=== PATIENT | male | born 1965 | race Caucasian/White ===

== ENCOUNTER 2023-09-02 12:12 | Inpatient (IN) ==
--- NOTE | 2023-09-02 12:40 | Emergency Department Note ---
History of Present Illness General Chief complaint: Cardiac Assessment Stated complaint: NEW ONSET A FIB Time Seen by Provider: 09/02/23 12:30 History of Present Illness Provider complaint: New onset atrial fibrillation 58-year-old male presents emergency department from skilled nursing for new onset atrial fibrillation. Patient went for routine health checkup and was found to be in atrial fibrillation. He reports some difficulty breathing but no chest pain. No recent travel no exogenous hormone usage no hemoptysis. Home Medications Medication Instructions Recorded Confirmed Type No Known Home Medications 09/02/23 09/02/23 History Allergies Allergy/AdvReac Type Severity Reaction Status Date / Time No Known Allergies Allergy Verified 09/02/23 15:56 Past Med/Surg History Medical History No pertinent family history HLD (hyperlipidemia) Surgical History No pertinent past surgical history Family History (Updated 09/02/23 @ 16:44 by Josefa Alberto PA-C) Father Heart disease Hypertension Sister Diabetes Social History Smoking Status: Former smoker Feels Safe at Home: Yes Physical Exam Vital Signs Vital Signs - 24 hr 09/02/23 12:23 09/02/23 12:39 09/02/23 12:40 Temperature 36.3 C L Temperature Source Temporal Artery Scan Pulse Rate 62 118 H 136 H Pulse Rate [Apical] Pulse Rate from SpO2 Sensor 79 68 Respiratory Rate 16 22 19 Respiratory Effort / Characteristics Non-Labored Respiratory Depth Normal Blood Pressure 134/104 H Blood Pressure [Right Arm] Blood Pressure Mean 114 Blood Pressure Mean [Right Arm] Pulse Oximetry 97 98 99 Oxygen Delivery Method Room Air Sepsis Recent Fever Within 48 Hours No Sepsis New/Unexplained Change in Mental Status No Sepsis Action Taken by Nursing No Action Required 09/02/23 12:41 09/02/23 12:44 09/02/23 12:44 Temperature Temperature Source Pulse Rate 106 H 118 H Pulse Rate [Apical] Pulse Rate from SpO2 Sensor 61 Respiratory Rate 14 Respiratory Effort / Characteristics Respiratory Depth Blood Pressure 135/98 Blood Pressure [Right Arm] Blood Pressure Mean 110 Blood Pressure Mean [Right Arm] Pulse Oximetry 99 99 Oxygen Delivery Method Room Air Sepsis Recent Fever Within 48 Hours Sepsis New/Unexplained Change in Mental Status Sepsis Action Taken by Nursing 09/02/23 12:54 09/02/23 15:55 09/02/23 16:28 Temperature Temperature Source Pulse Rate 125 H 89 Pulse Rate [Apical] 96 H Pulse Rate from SpO2 Sensor 82 Respiratory Rate 18 20 Respiratory Effort / Characteristics Non-Labored Respiratory Depth Normal Blood Pressure 123/103 H Blood Pressure [Right Arm] 135/89 Blood Pressure Mean 109 Blood Pressure Mean [Right Arm] 104 Pulse Oximetry 98 96 Oxygen Delivery Method Room Air Sepsis Recent Fever Within 48 Hours Sepsis New/Unexplained Change in Mental Status Sepsis Action Taken by Nursing Physical Exam GENERAL: oriented to person, place, and time. appears well-developed and well- nourished. HENT: Exam performed. - Head: Normocephalic and atraumatic. EYES: Conjunctivae and EOM are normal. Right eye exhibits no discharge. Left eye exhibits no discharge. No scleral icterus. NECK: Normal range of motion. Neck supple. No JVD present. CV: Normal rate, regular rhythm, normal heart sounds and intact distal pulses. There is no peripheral edema. Palpable radial pulses bue. PULM/CHEST: Effort normal and breath sounds normal. No respiratory distress. No stridor. no wheezes. no rales. ABD: The abdomen is soft. There is no tenderness. NEURO: Motor and sensation grossly intact. SKIN: Skin is warm and dry. He is not diaphoretic. PSYCH: normal mood and affect. Behavior is normal. Judgment and thought content normal. Course Course 1230: The patient was evaluated in room A9. A complete history and physical exam was performed Cardiac monitoring: An order was placed for continuous cardiac monitoring. The monitor shows a rate of atrial fibrilation with 100-120 rhythm interpreted by me 1400: Patient's ventricular rate now ranging between 120-150. Labs within normal limits. Cardizem IV ordered for the patient. Cardizem IV did improve patient's ventricular rate. Will continue to monitor the patient. Will send the patient for CTA rule out PE. 1530: Patient's ventricular rate was controlled after bolus of IV Cardizem however now the patient's ventricular rate is consistently 130s again. Patient be started on Cardizem drip. Patient will be admitted to the hospitalist team. Discussed case with cardiology on-call Dr. Kahn who is in agreement. Patient's [id number] score is a 0 aspirin given to the patient. Administered Medications Diltiazem HCl 125 mg/ Dextrose 125 mls @ 5 mls/hr IV .Q24H DANE; Protocol Stop: 10/02/23 15:29 Last Admin: 09/02/23 15:41 Dose: 5 mg/hr, 5 mls/hr Documented By: CPB Co-signed By: SADE Discontinued Medications Aspirin (Aspirin 81 Mg Chew) 324 mg PO NOW STA Stop: 09/02/23 15:24 Last Admin: 09/02/23 15:27 Dose: 324 mg Documented By: CPB Diltiazem HCl (Diltiazem Hcl 5 Mg/Ml 5 Ml Vial) 15 mg IV NOW STA Stop: 09/02/23 13:59 Last Admin: 09/02/23 14:01 Dose: 15 mg Documented By: CPB Co-signed By: LEANNE Ioversol (Optiray 320 125ml) 112 ml IV ONCE ONE Stop: 09/02/23 14:16 Last Admin: 09/02/23 14:15 Dose: 112 ml Documented By: LINDA Miscellaneous (Stat Iv Infusion Titration Per Protocol) 1 each N/A NOW STA Stop: 09/02/23 15:23 Last Admin: 09/02/23 15:42 Dose: 1 each Documented By: CPB Critical Care Time Critical Care Time: Yes Total Critical Care Time: 60 I have personally spent greater than 60 minutes of critical care time in the direct management of this patient. This includes bedside care, interpretation of diagnostic studies, and testing, discussion with consultants, patient, and family members, and other required patient management activities. This 60 minutes is in excess of all separately billable procedures. Medical Decision Making Laboratory Data Attestation: I reviewed the patient's lab results. 09/02/23 12:50 09/02/23 12:50 Lab Results 09/02/23 Range/Units 12:50 WBC 5.74 (4.8-10.8) K/ul RBC 4.85 (4.70-6.10) M/uL Hgb 14.6 (14.0-18.0) g/dl Hct 43.0 (42.0-52.0) % MCV 88.7 (80.0-100.0) fL MCH 30.1 (25.0-34.0) pg MCHC 34.0 (32.0-36.0) g/dL RDW Std Deviation 41.1 (36.4-46.3) fL RDW Coeff of Najma 12.6 (11.5-14.5) % Plt Count 188 (130-400) K/uL MPV 10.8 (9.4-12.4) fL Immature Gran % (Auto) 0.3 % Neut % (Auto) 55.6 % Lymph % (Auto) 34.7 % Spencer % (Auto) 7.3 % Eos % (Auto) 1.4 % Baso % (Auto) 0.7 % Neut # (Auto) 3.19 (1.40-6.50) K/uL Lymph # (Auto) 1.99 (1.20-3.40) K/uL Spencer # (Auto) 0.42 (0.11-0.59) K/uL Eos # (Auto) 0.08 (0.00-0.50) K/uL Baso # (Auto) 0.04 (0.00-0.20) K/uL Immature Gran # (Auto) 0.02 (0.01-0.20) K/uL Sodium 141 (136-145) mmol/L Potassium 4.3 (3.5-5.1) mmol/L Chloride 107 (98-107) mmol/L Carbon Dioxide 30 (21-32) mmol/L Anion Gap 4 (3-11) BUN 14 (6-23) mg/dl Creatinine 0.86 (0.6-1.4) mg/dl Est Cr Clr Drug Dosing 100.3 ml/min Est GFR ( Amer) 109.2 ml/min Est GFR (Non-Af Amer) 94.3 ml/min BUN/Creatinine Ratio 16.3 (10-20) Glucose 100 H (70-99(Fasting)) mg/dl Calcium 9.1 (8.6-10.3) mg/dl Magnesium 2.2 (1.7-2.4) mg/dl Troponin I High Sens 3.9 (0-20) pg/ml Lipase 32 (11-82) U/L Imaging Data Attestation: I personally reviewed and interpreted this imaging study as follows: My Impression: Chest x-ray negative. Airway clear. No pneumothorax. No consolidation. No cardiomegaly or cephalization.. No free air under the diaphragm. No fractures of the skeletal structures. Radiologist's Impression: Chest X-Ray 09/02/23 12:37 XR chest 1V portable HISTORY: 58 years-old Male Chest pain, nonspecific COMPARISON: None TECHNIQUE: AP view of the chest FINDINGS: Cardiomediastinal and hilar silhouettes are within normal limits. No pneumothorax, pleural effusion or airspace consolidation. IMPRESSION: No acute process. ACT 112: Negative or not required by law. The above report was generated using voice recognition software. It may contain grammatical, syntax or spelling errors. Electronically signed by: Ashish Moreno M.D. 09/02/2023 1:05 PM Chest CTA 09/02/23 14:02 CHEST CTA for PULMONARY ARTERIES CT DOSE: 704.98 mGy.cm HISTORY: Dysrhythmia. Assess for pulmonary embolus. TECHNIQUE: Multiaxial CT images of the chest were performed following the intravenous administration of contrast to evaluate the pulmonary arteries. 3D/Maximal intensity projection images were also obtained. Sagittal and coronal reformations were also reviewed. A dose lowering technique was utilized adhering to the principles of ALARA. COMPARISON STUDY: None. FINDINGS: There are old, healed left anterior rib fractures. No acute fractures within the chest. No pneumothorax. No pleural effusions. No focal lung consolidations to suggest pneumonia. No evidence for pulmonary edema. There are few punctate calcified granuloma seen within the lungs. Focus of mucoid material within the left mainstem bronchus. There is mild central bronchial wall thickening. Normal thyroid gland. Limited views of the upper abdomen demonstrate a normal liver, spleen, and adrenal glands. Normal esophagus. No mediastinal or hilar lymphadenopathy. The heart is normal in size. No pericardial effusion. Moderate calcified plaque within the left coronary artery. There is an ectatic ascending thoracic aorta measuring up to 3.9 cm in diameter. No evidence for an aortic dissection. No filling defects within the pulmonary arteries to suggest a pulmonary embolus. IMPRESSION: 1. No evidence for a pulmonary embolus. 2. Mild central bronchial wall thickening. This may represent a mild bronchitis. 3. No focal lung consolidations to suggest pneumonia. 4. Small amount of mucoid material within the left mainstem bronchus. ACT 112: Negative or not required by law. Electronically signed by: Mickey Johnson M.D. 09/02/2023 2:45 PM ECG Data Attestation: I personally reviewed and interpreted this ECG as follows: Additional Comments: EKG #1 at 1240: Atrial fibrillation with a rate of 136. QRS and QTc are within normal limits. No ST elevation or ST depression EKG #2 at 1406 status post Cardizem IV bolus: Atrial fibrillation with a rate of 106. QRS and QTc intervals within normal limits. No ST elevation or ST depression. MDM Narrative 1230: The patient was evaluated in room A9. A complete history and physical exam was performed Cardiac monitoring: An order was placed for continuous cardiac monitoring. The monitor shows a rate of atrial fibrilation with 100-120 rhythm interpreted by me 1400: Patient's ventricular rate now ranging between 120-150. Labs within normal limits. Cardizem IV ordered for the patient. Cardizem IV did improve patient's ventricular rate. Will continue to monitor the patient. Will send the patient for CTA rule out PE. 1530: Patient's ventricular rate was controlled after bolus of IV Cardizem however now the patient's ventricular rate is consistently 130s again. Patient be started on Cardizem drip. Patient will be admitted to the hospitalist team. Discussed case with cardiology on-call Dr. Kahn who is in agreement. Patient's [id number] score is a 0 aspirin given to the patient. Impression & Plan Atrial fibrillation with RVR Discharge Plan Visit Data Chief Complaint: Cardiac Assessment Stated Complaint: NEW ONSET A FIB ED Provider: Blaze Grey Discharge Problem: Atrial fibrillation with RVR Patient Disposition: Admitted As Inpatient Forms Stand Alone Forms: [employer] Prescriptions Prescriptions: No Action No Known Home Medications Referrals Referrals: PCP,NO [Physician] -
--- NOTE | 2023-09-02 13:07 | XRay Report ---
XR chest 1V portable HISTORY: 58 years-old Male Chest pain, nonspecific COMPARISON: None TECHNIQUE: AP view of the chest FINDINGS: Cardiomediastinal and hilar silhouettes are within normal limits. No pneumothorax, pleural effusion o r airspace consolidation. IMPRESSION: No acute process. ACT 112: Negative or not required by law. The above report was generated using voice recognition software. It may contain grammatical, syntax o r spelling errors. Electronically signed by: Ashish Moreno M.D. 09/02/2023 1:05 PM
[2023-09-02 13:24] LABS: Basophils # (auto) 0.04 K/uL (0.00-0.20); Basophils % (auto) 0.7 %; Eosinophils # (auto) 0.08 K/uL (0.00-0.50); Eosinophils % (auto) 1.4 %; Hemoglobin 14.6 g/dl (14.0-18.0); Immature Granulocytes # (auto) 0.02 K/uL (0.01-0.20); Immature Granulocytes % (auto) 0.3 %; Lymphocytes # (auto) 1.99 K/uL (1.20-3.40); Lymphocytes % (auto) 34.7 %; Mean Corpuscular Hemoglobin 30.1 pg (25.0-34.0); Mean Corpuscular Volume 88.7 fL (80.0-100.0); Mean Platelet Volume 10.8 fL (9.4-12.4); Monocytes # (auto) 0.42 K/uL (0.11-0.59); Monocytes % (auto) 7.3 %; Neutrophils # (auto) 3.19 K/uL (1.40-6.50); Neutrophils % (auto) 55.6 %; Platelet Count 188 K/uL (130-400); RDW Coefficient of Variation 12.6 % (11.5-14.5); RDW Standard Deviation 41.1 fL (36.4-46.3); Red Blood Count 4.85 M/uL (4.70-6.10); White Blood Count 5.74 K/ul (4.8-10.8)
[2023-09-02 13:40] LABS: BUN Creatinine Ratio 16.3 (10-20); Calcium 9.1 mg/dl (8.6-10.3); Creatinine Clr Calc Pharmacy 100.3 ml/min; Est GFR (African American) 109.2 ml/min; Est GFR (Non-African American) 94.3 ml/min; Magnesium 2.2 mg/dl (1.7-2.4); Potassium 4.3 mmol/L (3.5-5.1)
[2023-09-02 13:47] LABS: Troponin I High Sensitivity 3.9 pg/ml (0-20)
[2023-09-02] MEDS ORDERED: dilTIAZem HCl 5 MG/ML 5 ML VIAL IV STA (13:58)
[2023-09-02] MEDS ORDERED: OPTIRAY 320 125ml IV ONE (14:15)
--- NOTE | 2023-09-02 14:46 | CT Scan Report ---
CHEST CTA for PULMONARY ARTERIES CT DOSE: 704.98 mGy.cm HISTORY: Dysrhythmia. Assess for pulmonary embolus. TECHNIQUE: Multiaxial CT images of the chest were performed following the intravenous administration of contrast to evaluate the pulmonary arteries. 3D/Maximal intensity projection images were also obta ined. Sagittal and coronal reformations were also reviewed. A dose lowering technique was utilized a dhering to the principles of ALARA. COMPARISON STUDY: None. FINDINGS: There are old, healed left anterior rib fractures. No acute fractures within the chest. No pneumothorax. No pleural effusions. No focal lung consolidations to suggest pneumonia. No evidence fo r pulmonary edema. There are few punctate calcified granuloma seen within the lungs. Focus of mucoid material within the left mainstem bronchus. There is mild central bronchial wall thickening. Normal t hyroid gland. Limited views of the upper abdomen demonstrate a normal liver, spleen, and adrenal glan ds. Normal esophagus. No mediastinal or hilar lymphadenopathy. The heart is normal in size. No perica rdial effusion. Moderate calcified plaque within the left coronary artery. There is an ectatic ascend ing thoracic aorta measuring up to 3.9 cm in diameter. No evidence for an aortic dissection. No filli ng defects within the pulmonary arteries to suggest a pulmonary embolus. IMPRESSION: 1. No evidence for a pulmonary embolus. 2. Mild central bronchial wall thickening. This may represent a mild bronchitis. 3. No focal lung consolidations to suggest pneumonia. 4. Small amount of mucoid material within the left mainstem bronchus. ACT 112: Negative or not required by law. Electronically signed by: Mickey Johnson M.D. 09/02/2023 2:45 PM
[2023-09-02] MEDS ORDERED: STAT IV Infusion **Titration per Protocol STA (15:22)
[2023-09-02] MEDS ORDERED: ASPIRIN 81 MG CHEW PO STA (15:23)
[2023-09-02] MEDS: dilTIAZem HCL 125 MG in DEXTROSE 5% 100 ML IV SCH (15:41)
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
[2023-09-02] MEDS: METOPROLOL TARTRATE 25 MG TAB PO SCH (19:10)
[2023-09-02] MEDS ORDERED: ACETAMINOPHEN 325 MG TAB PO PRN (19:40)
--- NOTE | 2023-09-02 22:58 | Electrocardiogram Report ---
Test Reason : Blood Pressure : / mmHG Vent. Rate : 136 BPM Atrial Rate : 000 BPM P-R Int : 000 ms QRS Dur : 082 ms QT Int : 306 ms P-R-T Axes : 000 015 056 degrees QTc Int : 460 ms Atrial fibrillation with rapid ventricular response with premature ventricular or aberrantly conducte d complexes Abnormal ECG No previous ECGs available Confirmed by Urbano Kahn ([id number]) on 09/02/2023 10:57:43 PM Referred By: Confirmed By:Urbano Kahn
[2023-09-02] MEDS ORDERED: SODIUM CHLORIDE 0.9% 500 ML IV SCH (23:30)
[2023-09-03] MEDS: dilTIAZem HCL 125 MG in DEXTROSE 5% 100 ML IV SCH (02:01)
[2023-09-03 06:21] LABS: Hematocrit (blood only) 41.1 % (42.0-52.0); Hemoglobin 13.5 g/dl (14.0-18.0); Mean Corpuscular Hemoglobin 29.7 pg (25.0-34.0); Mean Corpuscular Hgb Conc 32.8 g/dL (32.0-36.0); Mean Corpuscular Volume 90.3 fL (80.0-100.0); Mean Platelet Volume 10.7 fL (9.4-12.4); Platelet Count 194 K/uL (130-400); RDW Coefficient of Variation 12.8 % (11.5-14.5); RDW Standard Deviation 42.3 fL (36.4-46.3); Red Blood Count 4.55 M/uL (4.70-6.10); White Blood Count 5.76 K/ul (4.8-10.8)
[2023-09-03 06:32] LABS: BUN Creatinine Ratio 17.5 (10-20); Calcium 9.1 mg/dl (8.6-10.3); Creatinine Clr Calc Pharmacy 88.9 ml/min; Est GFR (African American) 97.9 ml/min; Est GFR (Non-African American) 84.5 ml/min; Potassium 4.4 mmol/L (3.5-5.1)
[2023-09-03 07:17] LABS: Estimated Average Glucose 128 mg/dl; Hemoglobin A1C 6.1 % (4.5-5.6)
[2023-09-03] MEDS: METOPROLOL TARTRATE 25 MG TAB PO SCH ×2 (10:28→20:18)
[2023-09-03] MEDS: ASPIRIN 81 MG ECTAB PO SCH (10:28)
--- NOTE | 2023-09-03 11:36 | Hospitalist Progress Note ---
Date of Service September 03, 2023 Assessment & Plan (1) Atrial fibrillation with RVR: Plan: Patient was found to have atrial fibrillation on routine health checkup. EKG on admission personally reviewed; atrial fibrillation with ventricular rate of 136. Chest x-ray on admission personally reviewed; no acute findings CTA chest on admission reviewed; findings suggestive of mild bronchitis. High sensitive troponin negative. Continue on Cardizem drip and metoprolol. Awaiting echocardiogram. Will follow-up on cardiology recommendation. Prediabetes; HbA1c of 6.1% Recommended diabetic diet. DVT ppx: teds, scds Lines: 1 PIV FEN/GI: HH diet CODE: FULL Dispo: From present; continues to hospitalize due to atrial fibrillation requiring Cardizem drip. Awaiting echocardiogram and cardiology recommendation. Time spent evaluating patient, direct bedside care, chart review, placing orders, interpretation of diagnostic studies, discussion with consultants, patient, and family members, as well as other required patient management activities is 50 minutes Please note the above document was generated using voice recognition software. It may contain grammatical, syntax or spelling errors. Any formal questions or concerns about the content, text or information contained within the body of this dictation should be directly addressed to the provider for clarification Admission and Anticipated Discharge Date Admission Date: September 02, 2023 Subjective Patient seen and examined at bedside. Comfortable; not in distress. Denies fever, chills, chest pain, shortness of breath, abdominal pain or urinary symptoms. No significant overnight events Telemetry shows atrial fibrillation with ventricular rate of 80s with few PVCs. He is on Cardizem drip at 5 mg/h. Review of Systems Review of Systems: All systems reviewed & are unremarkable except as noted in Subjective Results & Data Results & Data Vital Signs (Past 12 Hours) Vital Signs Temp Pulse Resp BP BP Pulse Ox O2 Del Method 09/03/23 07:55 36.6 C 77 18 126/68 94 Room Air 09/03/23 05:49 94 H 09/03/23 05:47 94 H 119/81 09/03/23 02:06 131 H 15 128/80 96 Room Air 09/03/23 02:03 131 H 09/03/23 01:54 36.8 C 108 H 18 128/85 97 Room Air 09/03/23 01:00 93 H 16 107/76 95 Room Air
--- NOTE | 2023-09-03 11:47 | Cardiology Consultation ---
Date of Consultation September 03, 2023 Assessment & Plan (1) Atrial fibrillation with RVR: Newly found AF; pt is not symptomatic; [id number] 0 Stop diltiazem drip Recommend ASA for now for CVA prevention given the low [id number] score Metoprolol tartrated 25mg BID for rate control Echo today shows preserved EF no wall motion abnormality Consider sleep study as an outpt as well as ischemic work up can probably discharge tomorrow (2) Mitral regurgitation: mild and most likely due to the AF (3) Tobacco use: emphasized smoking cessation Plan 58y/o Male PMH tobacco use brought in from detention due to elevated HR found to be in AF. He was started on ASA and ditliazem drip and metoprolol started-HR are better controlled; pt is asymptomatic; echo is unremarkable; recommend metoprolol tartrate 25mg BID and ASA and probably can discharge tomorrow I send the hospitalist a tiger text of my recommendations and plan and he agreed History of Present Illness Reason for Consultation: AF Requesting Physician: Dr. Alberto Attending Physician: Quinton Holley MD History of Present Illness Pt seen earlier this afternoon at the bedside Pt tells me he was brought into the hospital due to fast heart rates He tells me he did not feel any palpitations. he denies any lightheadedness dizziness, chest pains, palpitations and SOB he denies any MUNA he has never seen a general engineer Tells me he is not on any medications Allergies Allergy/AdvReac Type Severity Reaction Status Date / Time No Known Allergies Allergy Verified 09/02/23 15:56 Home Medications Medication Instructions Recorded Confirmed Type No Known Home Medications 09/02/23 09/02/23 History Patient History Medical History No pertinent family history HLD (hyperlipidemia) Surgical History No pertinent past surgical history Family History Father Heart disease Hypertension Sister Diabetes Social History Smoking Status: Former smoker Tobacco Type: Cigarettes Second Hand Exposure: No; Do You Dip or Chew Tobacco: No; Hx Alcohol Use: Yes Alcohol type: beer and hard liquor Hx Substance Use: Yes Last Used Substance Other:: 1.5 yrs ago prior to detention Preferred Language: Azeri Communication Ability: Effective Hunting And Fishing Guide Required: No Beliefs That Will Affect Care: None Current Living Situation: Other Current Living Situation Comment: correctional facility Other Information That Helps Us Care for You: No Feels Safe at Home: Yes Safety Concerns: Feels Safe At This Time Assistive Devices: None Review of Systems Review of Systems: All systems reviewed & are unremarkable except as noted in HPI & below Physical Exam Physical Exam: aaox3, NAD NC/AT, EOMI Supple No JVD irregular/irregular S1/S2, No murmur CTA b/l no w/r/r soft nt/nd no LE edema b/l skin intact no focal deficits Results & Data Vital Signs (Past 12 Hours) Vital Signs Temp Pulse Resp BP BP Pulse Ox O2 Del Method 09/03/23 07:55 36.6 C 77 18 126/68 94 Room Air 09/03/23 05:49 94 H 09/03/23 05:47 94 H 119/81 09/03/23 02:06 131 H 15 128/80 96 Room Air 09/03/23 02:03 131 H 09/03/23 01:54 36.8 C 108 H 18 128/85 97 Room Air 09/03/23 01:00 93 H 16 107/76 95 Room Air Laboratory Results Lipids 09/03/23 Range/Units 05:33 Triglycerides 98 (0-150) mg/dl Cholesterol 142 (0-200) mg/dl HDL Cholesterol 47 mg/dl Cholesterol/HDL Ratio 3.0 (0-5) CBC 09/03/23 Range/Units 05:33 WBC 5.76 (4.8-10.8) K/ul RBC 4.55 L (4.70-6.10) M/uL Hgb 13.5 L (14.0-18.0) g/dl Hct 41.1 L (42.0-52.0) % Plt Count 194 (130-400) K/uL Comprehensive Metabolic Panel 09/03/23 Range/Units 05:33 Sodium 142 (136-145) mmol/L Potassium 4.4 (3.5-5.1) mmol/L Chloride 108 H (98-107) mmol/L Carbon Dioxide 28 (21-32) mmol/L BUN 17 (6-23) mg/dl Creatinine 0.97 (0.6-1.4) mg/dl Glucose 112 H (70-99(Fasting)) mg/dl Calcium 9.1 (8.6-10.3) mg/dl Intake and Output 09/03/23 09/03/23 09/03/23 06:59 14:59 22:59 Intake Total 500 / 529.25 54 / 54 Balance 500 / 529.25 54 / 54 Intake: IV 500 / 529.25 54 / 54 Sodium Chloride 0.9% 500 ml @ 500 / 500 500 mls/hr IV .Q1H [facility] Rx#: [id number] dilTIAZem HCL 125 mg In . 54 / 54 Dextrose 5% 100 ml @ 0 MG/HR IV .Q0M [facility] Rx#:[id number] Other: Other Intake Source sips Weight 82.1 kg Weight Measurement Method Built in [facility] Diagnostic Findings CT Chest: 09/02/2023: . No evidence for a pulmonary embolus. 2. Mild central bronchial wall thickening. This may represent a mild bronchitis. 3. No focal lung consolidations to suggest pneumonia. 4. Small amount of mucoid material within the left mainstem bronchus. CXR 09/02/2023: based on my independent review no acute pulmonary or cardiac process Echocardiogram: 09/03/23 EF 55-60% Mild MR Medications Administered Current Inpatient Medications Acetaminophen (Acetaminophen 325 Mg Tab) 650 mg PO Q4H PRN PRN Reason: Moderate Pain (Scale 4, 5, 6) Stop: 10/02/23 19:39 Aspirin (Aspirin 81 Mg Ectab) 81 mg PO QAM [facility] Stop: 10/03/23 08:59 Last Admin: 09/03/23 10:28 Dose: 81 mg Diltiazem HCl 125 mg/ Dextrose 125 mls @ 0 mls/hr IV .Q0M [facility]; Protocol Stop: 10/02/23 15:29 Last Titration: 09/03/23 12:49 Dose: 0 mg/hr, 0 mls/hr Metoprolol Tartrate (Metoprolol Tartrate 25 Mg Tab) 25 mg PO BID [facility] Stop: 10/02/23 18:59 Last Admin: 09/03/23 10:28 Dose: 25 mg ECG Additional Comments: ECGS: 09/02/2023 AF 106bpm AF 136bpm
--- NOTE | 2023-09-03 16:10 | Electrocardiogram Report ---
Test Reason : Blood Pressure : / mmHG Vent. Rate : 106 BPM Atrial Rate : 000 BPM P-R Int : 000 ms QRS Dur : 086 ms QT Int : 338 ms P-R-T Axes : 000 000 055 degrees QTc Int : 448 ms Atrial fibrillation with rapid ventricular response with premature ventricular or aberrantly conducte d complexes Abnormal ECG When compared with ECG of 02-SEP-2023 12:40, No significant change was found Confirmed by Brown Cuellar ([id number]) on 09/03/2023 4:09:52 PM Referred By: Carl NAM Confirmed By:Edwin Cuellar
[2023-09-04 06:29] LABS: Basophils # (auto) 0.03 K/uL (0.00-0.20); Basophils % (auto) 0.4 %; Eosinophils # (auto) 0.11 K/uL (0.00-0.50); Eosinophils % (auto) 1.5 %; Hematocrit (blood only) 43.2 % (42.0-52.0); Hemoglobin 14.4 g/dl (14.0-18.0); Immature Granulocytes # (auto) 0.02 K/uL (0.01-0.20); Immature Granulocytes % (auto) 0.3 %; Mean Corpuscular Hemoglobin 29.9 pg (25.0-34.0); Mean Corpuscular Hgb Conc 33.3 g/dL (32.0-36.0); Mean Corpuscular Volume 89.8 fL (80.0-100.0); Mean Platelet Volume 10.9 fL (9.4-12.4); Monocytes # (auto) 0.67 K/uL (0.11-0.59); Monocytes % (auto) 9.2 %; Neutrophils # (auto) 3.52 K/uL (1.40-6.50); Neutrophils % (auto) 48.6 %; Platelet Count 183 K/uL (130-400); RDW Coefficient of Variation 12.6 % (11.5-14.5); RDW Standard Deviation 41.7 fL (36.4-46.3); Red Blood Count 4.81 M/uL (4.70-6.10); White Blood Count 7.25 K/ul (4.8-10.8)
[2023-09-04 06:47] LABS: BUN Creatinine Ratio 22.6 (10-20); Creatinine Clr Calc Pharmacy 92.7 ml/min; Est GFR (African American) 103.1 ml/min; Est GFR (Non-African American) 88.9 ml/min; Magnesium 2.1 mg/dl (1.7-2.4); Potassium 4.2 mmol/L (3.5-5.1)
[2023-09-04] MEDS: METOPROLOL TARTRATE 25 MG TAB PO SCH (08:13)
[2023-09-04] MEDS: ASPIRIN 81 MG ECTAB PO SCH (08:49)
[2023-09-04] MEDS ORDERED: METOPROLOL TARTRATE 25 MG TAB PO STA (09:59)
--- NOTE | 2023-09-04 11:51 | Hospitalist Progress Note ---
Date of Service September 04, 2023 Assessment & Plan (1) Atrial fibrillation with RVR: Plan: Patient was found to have atrial fibrillation on routine health checkup. EKG on admission personally reviewed; atrial fibrillation with ventricular rate of 136. Chest x-ray on admission personally reviewed; no acute findings CTA chest on admission reviewed; findings suggestive of mild bronchitis. High sensitive troponin negative. Echocardiogram shows EF of 55 to 60%, nondilated cardiac chambers. Mild MR. Metoprolol dose increased to 50 mg twice a day for better rate control. On aspirin. No anticoagulation as per cardiology. Prediabetes; HbA1c of 6.1% Recommended diabetic diet. DVT ppx: teds, scds Lines: 1 PIV FEN/GI: HH diet CODE: FULL Dispo: From [facility]; continues to hospitalize due to atrial fibrillation with RVR. Dose of metoprolol has been increased. Continue to monitor on telemetry. Please note the above document was generated using voice recognition software. It may contain grammatical, syntax or spelling errors. Any formal questions or concerns about the content, text or information contained within the body of this dictation should be directly addressed to the provider for clarification Admission and Anticipated Discharge Date Admission Date: September 02, 2023 Subjective Patient seen and examined at bedside. In the morning, patient's ventricular rate went up to 110s to 120s. Denies any chest pain, palpitation. Review of Systems Review of Systems: All systems reviewed & are unremarkable except as noted in Subjective Physical Exam 2 Physical Exam: Constitutional: WD/WN, vitals as above, NAD, sitting up in bed, pleasant, conversing easily Respiratory: normal respiratory effort, lungs clear to auscultation, no wheeze, rales, rhonchi. Normal insp/exp effort, no accessory muscle use Cardiovascular: Irregular, no murmur, no edema Vessels: no JVD or carotid bruit Chest: normal inspection of chest Abdomen: normal bowel sounds, soft, nontender, no hepatosplenomegaly Musculoskeletal: no cyanosis or clubbing, extremities motor strength 5/5 Skin: no rashes, warm and dry normal turgor Neurologic: PERRL, EOMI, accommodation nl, no face palsy, no dysarthria CN's II- XI intact bilaterally and moves all extremities Psychiatric: A+Ox3, euthymic affect Results & Data Results & Data Vital Signs (Past 12 Hours) Vital Signs Temp Pulse Pulse Resp BP Pulse Ox O2 Del Method 09/04/23 11:28 36.7 C 67 18 102/71 94 Room Air 09/04/23 10:17 105 H 18 140/81 09/04/23 07:39 133 H 09/04/23 07:29 36.6 C 72 18 103/48 L 92 Room Air 09/04/23 03:00 36.5 C 81 18 93/57 L 95 Room Air 09/03/23 23:59 93/57 L
[2023-09-04] MEDS: METOPROLOL TARTRATE 50 MG TAB PO SCH (19:29)
[2023-09-05 06:58] LABS: Basophils # (auto) 0.03 K/uL (0.00-0.20); Basophils % (auto) 0.4 %; Eosinophils # (auto) 0.16 K/uL (0.00-0.50); Eosinophils % (auto) 2.1 %; Hematocrit (blood only) 46.7 % (42.0-52.0); Hemoglobin 15.7 g/dl (14.0-18.0); Immature Granulocytes # (auto) 0.02 K/uL (0.01-0.20); Immature Granulocytes % (auto) 0.3 %; Lymphocytes % (auto) 34.4 %; Mean Corpuscular Hgb Conc 33.6 g/dL (32.0-36.0); Mean Corpuscular Volume 89.3 fL (80.0-100.0); Mean Platelet Volume 10.6 fL (9.4-12.4); Monocytes # (auto) 0.68 K/uL (0.11-0.59); Neutrophils # (auto) 4.06 K/uL (1.40-6.50); Neutrophils % (auto) 53.8 %; Platelet Count 188 K/uL (130-400); RDW Coefficient of Variation 12.6 % (11.5-14.5); RDW Standard Deviation 41.5 fL (36.4-46.3); Red Blood Count 5.23 M/uL (4.70-6.10); White Blood Count 7.55 K/ul (4.8-10.8)
[2023-09-05 07:25] LABS: BUN Creatinine Ratio 24.1 (10-20); Calcium 9.2 mg/dl (8.6-10.3); Creatinine Clr Calc Pharmacy 79.8 ml/min; Est GFR (Non-African American) 74.2 ml/min; Magnesium 2.1 mg/dl (1.7-2.4); Potassium 4.5 mmol/L (3.5-5.1)
[2023-09-05] MEDS: METOPROLOL TARTRATE 50 MG TAB PO SCH ×2 (07:52→19:29)
[2023-09-05] MEDS: ASPIRIN 81 MG ECTAB PO SCH (07:52)
[2023-09-05] MEDS ORDERED: ENOXAPARIN INJ 40 MG/0.4 ML SYR SQ SCH (09:30)
--- NOTE | 2023-09-05 13:56 | Hospitalist Progress Note ---
Date of Service September 05, 2023 Assessment & Plan (1) Atrial fibrillation with RVR: Plan: Patient was found to have atrial fibrillation on routine health checkup. EKG on admission personally reviewed; atrial fibrillation with ventricular rate of 136. Chest x-ray on admission personally reviewed; no acute findings CTA chest on admission reviewed; findings suggestive of mild bronchitis. High sensitive troponin negative. Echocardiogram shows EF of 55 to 60%, nondilated cardiac chambers. Mild MR. Metoprolol dose increased to 50 mg twice a day for better rate control. Ventricular rate continues to be on the higher side. Discussed with cardiology; cardiology to evaluate the patient today. On aspirin. No anticoagulation as per cardiology. Prediabetes; HbA1c of 6.1% Recommended diabetic diet. DVT ppx: teds, scds Lines: 1 PIV FEN/GI: HH diet CODE: FULL Dispo: From custodial; continues to hospitalize due to atrial fibrillation with RVR. His ventricular rate continues to have high despite increase in metoprolol. Appreciate cardiology's input. continue to monitor on telemetry. Please note the above document was generated using voice recognition software. It may contain grammatical, syntax or spelling errors. Any formal questions or concerns about the content, text or information contained within the body of this dictation should be directly addressed to the provider for clarification Admission and Anticipated Discharge Date Admission Date: September 02, 2023 Subjective Patient seen and examined at bedside. Comfortable; not in distress. Denies fever, chills, chest pain, shortness of breath, abdominal pain or urinary symptoms. No significant overnight events Telemetry shows atrial fibrillation with ventricular rate of 110s to 120s Review of Systems Review of Systems: All systems reviewed & are unremarkable except as noted in Subjective Physical Exam Physical Exam: Constitutional: WD/WN, vitals as above, NAD, sitting up in bed, pleasant, conversing easily Respiratory: normal respiratory effort, lungs clear to auscultation, no wheeze, rales, rhonchi. Normal insp/exp effort, no accessory muscle use Cardiovascular: Irregular, no murmur, no edema Vessels: no JVD or carotid bruit Chest: normal inspection of chest Abdomen: normal bowel sounds, soft, nontender, no hepatosplenomegaly Musculoskeletal: no cyanosis or clubbing, extremities motor strength 5/5 Skin: no rashes, warm and dry normal turgor Neurologic: PERRL, EOMI, accommodation nl, no face palsy, no dysarthria CN's II- XI intact bilaterally and moves all extremities Psychiatric: A+Ox3, euthymic affect Results & Data Results & Data Vital Signs (Past 12 Hours) Vital Signs Temp Pulse Pulse Resp BP Pulse Ox O2 Del Method 09/05/23 10:34 36.7 C 83 19 99/65 L 93 Room Air 09/05/23 09:00 126 H 09/05/23 07:28 36.8 C 62 17 109/77 93 Room Air 09/05/23 03:36 36.6 C 57 L 16 104/74 98 Room Air
[2023-09-05] MEDS ORDERED: ENOXAPARIN INJ 40 MG/0.4 ML SYR SQ STA (16:38)
--- NOTE | 2023-09-05 16:54 | Cardiology Progress Note ---
Date of Service September 05, 2023 Assessment & Plan (1) Atrial fibrillation with RVR: (2) Mitral regurgitation: (3) HLD (hyperlipidemia): Plan (1) Atrial fibrillation with RVR: Patient remains in atrial fibrillation despite treatment with metoprolol t artrate 50 mg twice daily. His [id number] score is relatively low, 1 (newly diagnosed DM, Hgb a1c f 6.1%) , he has had persistent atrial fibrillation for over 48 hours. He describes minimal symptoms at present. With physical exertion, I anticipate he will not feel well in the long-term with ongoing rapid ventricular rates. The pathophysiology of atrial fibrillation was discussed with the patient. Recommend proceeding with transesophageal echocardiogram guided direct-current cardioversion and the patient is agreeable. Patient tentatively scheduled to be performed tomorrow with anesthesia. Consultation referral to anesthesia placed and I discussed the case with Dr. Awad. With regards to stroke risk. Since he is currently an inmate, I am not certain if Eliquis would be an option. Dr. Holley, investigate feasibility of direct oral anticoagulant versus warfarin. In the meantime, APTT, PT/INR, have been requested and will start Lovenox 1 mg per per kilogram every 12 hours split with Coumadin. Informed consent for ETHEL cardioversion obtained. Forms completed and are on his paper chart. (2) Mitral regurgitation: Mild mitral regurgitation on echocardiogram continue to follow. (3) HLD (hyperlipidemia): LDL 75 mg/dl. Continue dietary treatment. Admission and Anticipated Discharge Date Admission Date: September 02, 2023 Subjective Patient seen in cardiology follow-up. Has noted occasional shortness of breath, no acute symptoms at present. Telemetry reveals atrial fibrillation with ventricular rate mostly in the 120s today, with range of 110 bpm to 160 bpm. Physical Exam Constitutional: WD/WN, vitals as above Respiratory: normal respiratory effort, lungs clear to auscultation Cardiovascular: Rate/Rhythm: + tachycardic and + irregularly irregular Heart Sounds: no murmur Extremities: no edema Results & Data Vital Signs (Past 12 Hours) Vital Signs Temp Pulse Pulse Resp BP Pulse Ox O2 Del Method 09/05/23 14:46 36.7 C 70 18 99/67 L 93 Room Air 09/05/23 10:34 36.7 C 83 19 99/65 L 93 Room Air 09/05/23 09:00 126 H 09/05/23 07:28 36.8 C 62 17 109/77 93 Room Air Laboratory Results CBC 09/05/23 Range/Units 06:23 WBC 7.55 (4.8-10.8) K/ul RBC 5.23 (4.70-6.10) M/uL Hgb 15.7 (14.0-18.0) g/dl Hct 46.7 (42.0-52.0) % Plt Count 188 (130-400) K/uL Neut # (Auto) 4.06 (1.40-6.50) K/uL Lymph # (Auto) 2.60 (1.20-3.40) K/uL Aiken # (Auto) 0.68 H (0.11-0.59) K/uL Eos # (Auto) 0.16 (0.00-0.50) K/uL Baso # (Auto) 0.03 (0.00-0.20) K/uL Comprehensive Metabolic Panel 09/05/23 Range/Units 06:23 Sodium 142 (136-145) mmol/L Potassium 4.5 (3.5-5.1) mmol/L Chloride 109 H (98-107) mmol/L Carbon Dioxide 28 (21-32) mmol/L BUN 26 H (6-23) mg/dl Creatinine 1.08 (0.6-1.4) mg/dl Glucose 103 H (70-99(Fasting)) mg/dl Calcium 9.2 (8.6-10.3) mg/dl Diagnostic Findings Echocardiogram performed 09/03/2023: Normal LVEF in the range of 55 to 60%, mild mitral regurgitation. Normal left atrial size (2) Mitral regurgitation Cardiac valve disease etiology: nonrheumatic Qualified Code(s): I34.0 - Nonrheumatic mitral (valve) insufficiency (3) HLD (hyperlipidemia) Hyperlipidemia type: pure hypercholesterolemia Qualified Code(s): E78.00 - Pu re hypercholesterolemia, unspecified
[2023-09-05 17:26] LABS: Partial Thromboplastin Ratio 1.1; Partial Thromboplastin Time 30 Seconds (21-31); Prothrombin Time 11.2 Seconds (9.0-12.0)
[2023-09-05] MEDS ORDERED: WARFARIN SOD 10 MG TAB PO ONE (18:24)
--- NOTE | 2023-09-05 19:01 | Anesthesiology Consultation ---
Date of Service September 05, 2023 Assessment & Plan Chart Review Chart Review: Acceptable Risk for Surgery and Patient NOT seen in Pre Admission Testing Consults Requested none History Surgery Operation Date: 09/06/23 07:30 Proposed Procedures p ETHEL Guided Cardioversion - Jed Amin DO Height/Weight Height: 6 ft Weight: 82.1 kg Allergies Allergy/AdvReac Type Severity Reaction Status Date / Time No Known Allergies Allergy Verified 09/02/23 15:56 Medications Home Medications Medication Instructions Recorded Confirmed Last Taken aspirin 81 mg tablet,delayed 81 mg PO QAM #30 tabs 09/04/23 Unknown release metoprolol tartrate 25 mg tablet 25 mg PO BID #60 tabs 09/04/23 Unknown Active Medications Generic Name Dose Route Start Last Admin Trade Name Freq PRN Reason Stop Dose Admin Aspirin 81 mg 09/03/23 09:00 09/05/23 07:52 Aspirin 81 Mg Ectab PO 10/03/23 08:59 81 mg QAM DANE Administration Metoprolol Tartrate 50 mg 09/04/23 21:00 09/05/23 07:52 Metoprolol Tartrate 50 Mg Tab PO 10/04/23 20:59 50 mg BID DANE Administration Past Medical History Medical History No pertinent family history HLD (hyperlipidemia) Past Family History Family History Father Heart disease Hypertension Sister Diabetes Past Surgical History Surgical History No pertinent past surgical history Social History Smoking Status: Former smoker Do You Dip or Chew Tobacco: No Hx Alcohol Use: Yes Alcohol type: beer and hard liquor alcohol intake frequency: a few times a month Alcohol Intake Frequency Comment: not since in jail Hx Substance Use: Yes substance use type: former substance user, marijuana and crack/cocaine Last Used Substance Other:: 1.5 yrs ago prior to jail Physical Exam Vital Signs Last Vital Signs Temp 36.7 C 09/05/23 14:46 Pulse 70 09/05/23 14:46 Resp 18 09/05/23 14:46 BP 99/67 L 09/05/23 14:46 Pulse Ox 93 09/05/23 14:46 O2 Del Method Room Air 09/05/23 14:46 Testing Laboratory Results 09/05/23 06:23 09/05/23 06:23 PT 11.2 Seconds (9.0-12.0) 09/05/23 16:37 INR 1.0 (0.9-1.1) 09/05/23 16:37 APTT 30 Seconds (21-31) 09/05/23 16:37 Hemoglobin A1c 6.1 % (4.5-5.6) H 09/03/23 05:33 Electrocardiogram Date: 09/02/23 Findings: + AFIB @ Chest X-Ray Date: 09/02/23 Findings: + NAD Echocardiogram Date: 09/03/23 EF: 50-55 LV Function: normal Other Findings: + pertinent finding (afib)
[2023-09-06] MEDS ORDERED: ENOXAPARIN 80 MG/0.8 ML SYR SQ SCH (06:00)
[2023-09-06] MEDS ORDERED: BENZOCAINE/TETRACAIN/BUTAM 50 APPLN/5 GM CAN EXT ONE (06:53)
--- NOTE | 2023-09-06 07:21 | History & Physical Bridge Note ---
Date of Service September 06, 2023 History & Physical Bridge Note I have examined the patient, reviewed the History & Physical and in the interval since the performance of the History & Physical I have noted the following changes of clinical significance: no changes noted
--- NOTE | 2023-09-06 08:11 | Post Operative Brief Note ---
Cardiology Brief Post Op Date of Surgery September 06, 2023 Pre & Post Diagnosis Operation Date: 09/06/23 07:30 Procedure Preprocedure diagnosis: Rule out left atrial/left atrial appendage thrombus, persistent symptomatic atrial fibrillation with rapid ventricular response Post procedure diagnosis: No left atrial or left atrial appendage thrombus, successful conversion to sinus rhythm Transesophageal echocardiogram guided direct-current cardioversion procedure: After informed consent was obtained and timeout was performed the patient was sedated with the assistance of the anesthesia service. A focused, goal-directed transesophageal echocardiogram was performed. The left atrial appendage was well-visualized with no evidence of thrombus. The patient then underwent direct-current cardioversion receiving a single dose of 200 J of biphasic energy with successful conversion to sinus rhythm. Stained Glass Glazier Helper Jed Amin DO Service Technician MARSHALL Reyes Estimated Blood Loss 0 Findings Consistent with Post-Op Diagnosis Anesthesia Type MAC Complications none
[2023-09-06] MEDS ORDERED: LIDOCAINE 2% 2 ML VIAL/AMP(20MG/ML) INFIL ONE (08:12)
[2023-09-06] MEDS ORDERED: PROPOFOL IV EMULSION 10 MG/ML 20 ML VIAL IV ONE (08:12)
--- NOTE | 2023-09-06 08:14 | Cardiology Progress Note ---
Date of Service September 06, 2023 Assessment & Plan (1) Atrial fibrillation with RVR: (2) Mitral regurgitation: (3) HLD (hyperlipidemia): Plan (1) Atrial fibrillation with RVR: Patient remains in atrial fibrillation despite treatment with metoprolol t artrate 50 mg twice daily. His [id number] score is relatively low, 1 (newly diagnosed DM, Hgb a1c o f 6.1%). Patient underwent ETHEL guided direct-current cardioversion. Reduce metoprolol to 25 mg twice daily. Depending upon today's INR, will continue Coumadin load, dose to be determined. (2) Mitral regurgitation: Trace to mild mitral regurgitation noted on transesophageal echocardiogram. (3) HLD (hyperlipidemia): LDL 75 mg/dl. Continue dietary treatment. Admission and Anticipated Discharge Date Admission Date: September 02, 2023 Subjective Patient seen prior to, during, and post ETHEL guided direct-current cardioversion today. Patient tolerated procedure well and converted to sinus rhythm. Physical Exam Constitutional: WD/WN, vitals as above Respiratory: normal respiratory effort, lungs clear to auscultation Cardiovascular: Rate/Rhythm: + tachycardic and + irregularly irregular Heart Sounds: no murmur Extremities: no edema Results & Data Vital Signs (Past 12 Hours) Vital Signs Temp Pulse Pulse Resp BP Pulse Ox O2 Del Method 09/06/23 08:00 57 L 16 97/69 L 96 Room Air 09/06/23 07:45 54 L 16 84/59 L 96 Room Air 09/06/23 07:07 101 H 16 99/82 L 93 Room Air 09/06/23 06:54 113 H 09/06/23 02:45 36.7 C 90 18 107/71 96 Room Air 09/05/23 23:04 36.7 C 97 H 18 105/74 95 Room Air Laboratory Results Laboratory studies pending at the time of this note. (2) Mitral regurgitation Cardiac valve disease etiology: nonrheumatic Qualified Code(s): I34.0 - Nonrheumatic mitral (valve) insufficiency (3) HLD (hyperlipidemia) Hyperlipidemia type: pure hypercholesterolemia Qualified Code(s): E78.00 - Pure hypercholesterolemia, unspecified
[2023-09-06 08:36] LABS: Basophils # (auto) 0.04 K/uL (0.00-0.20); Basophils % (auto) 0.6 %; Eosinophils # (auto) 0.15 K/uL (0.00-0.50); Eosinophils % (auto) 2.3 %; Hematocrit (blood only) 46.5 % (42.0-52.0); Hemoglobin 15.6 g/dl (14.0-18.0); Immature Granulocytes # (auto) 0.01 K/uL (0.01-0.20); Immature Granulocytes % (auto) 0.2 %; Lymphocytes # (auto) 2.44 K/uL (1.20-3.40); Mean Corpuscular Hgb Conc 33.5 g/dL (32.0-36.0); Mean Corpuscular Volume 89.4 fL (80.0-100.0); Mean Platelet Volume 10.6 fL (9.4-12.4); Monocytes # (auto) 0.62 K/uL (0.11-0.59); Monocytes % (auto) 9.7 %; Neutrophils # (auto) 3.16 K/uL (1.40-6.50); Neutrophils % (auto) 49.2 %; Platelet Count 192 K/uL (130-400); RDW Coefficient of Variation 12.6 % (11.5-14.5); RDW Standard Deviation 41.4 fL (36.4-46.3); White Blood Count 6.42 K/ul (4.8-10.8)
[2023-09-06 08:51] LABS: BUN Creatinine Ratio 21.1 (10-20); Calcium 9.1 mg/dl (8.6-10.3); Creatinine Clr Calc Pharmacy 75.6 ml/min; Est GFR (African American) 80.6 ml/min; Est GFR (Non-African American) 69.5 ml/min; Potassium 4.8 mmol/L (3.5-5.1)
[2023-09-06] MEDS: METOPROLOL TARTRATE 25 MG TAB PO SCH ×2 (08:57→21:10)
[2023-09-06] MEDS: ASPIRIN 81 MG ECTAB PO SCH (08:57)
[2023-09-06 09:06] LABS: INR 1.1 (0.9-1.1); Prothrombin Time 11.9 Seconds (9.0-12.0); Thyroid Stimulating Hormone 4.265 uIu/ml (0.300-4.500)
--- NOTE | 2023-09-06 09:27 | Anesthesiology Progress Note ---
Date of Service September 06, 2023 Anesthesia Post Procedure Vital Signs Vital Signs: Temp Pulse Pulse Resp BP Pulse Ox O2 Del Method 09/06/23 09:20 53 L 09/06/23 08:53 36.7 C 55 L 16 103/68 97 Room Air 09/06/23 08:00 57 L 16 97/69 L 96 Room Air 09/06/23 07:45 54 L 16 84/59 L 96 Room Air 09/06/23 07:07 101 H 16 99/82 L 93 Room Air 09/06/23 06:54 113 H 09/06/23 02:45 36.7 C 90 18 107/71 96 Room Air 09/05/23 23:04 36.7 C 97 H 18 105/74 95 Room Air 09/05/23 19:35 36.8 C 98 H 18 113/73 94 Room Air 09/05/23 14:46 36.7 C 70 18 99/67 L 93 Room Air 09/05/23 10:34 36.7 C 83 19 99/65 L 93 Room Air Transfer of Care Handoff Completed per policy Notes Mental Status: alert / awake / arousable and participated in evaluation Patient Amnestic to Procedure: Yes Nausea / Vomiting: adequately controlled Pain: adequately controlled Airway Patency, RR, SpO2: stable & adequate BP & HR: stable & adequate Hydration State: stable & adequate Anesthetic Complications: no major complications apparent
[2023-09-06] MEDS ORDERED: WARFARIN SOD 10 MG TAB PO ONE (10:57)
--- NOTE | 2023-09-06 11:19 | Communication Note ---
Date of Service: September 06, [address] Holley. Eliquis is available at the [facility]. Will therefore stop Lovenox bridge and Coumadin load and transition to Eliquis 5 mg BID, next dose tonight at 6 pm. Reviewed with pt's nurse. Stephen Amin DO
--- NOTE | 2023-09-06 12:22 | Electrocardiogram Report ---
Test Reason : Blood Pressure : / mmHG Vent. Rate : 054 BPM Atrial Rate : 054 BPM P-R Int : 160 ms QRS Dur : 086 ms QT Int : 416 ms P-R-T Axes : 066 025 067 degrees QTc Int : 394 ms Sinus bradycardia Possible Left atrial enlargement Borderline ECG When compared with ECG of 02-SEP-2023 14:06, Sinus rhythm has replaced Atrial fibrillation Vent. rate has decreased BY 52 BPM QT has shortened Confirmed by Brown Cuellar ([id number]) on 09/06/2023 12:21:56 PM Referred By: Carl NAM Confirmed By:Edwin Cuellar
--- NOTE | 2023-09-06 13:24 | Hospitalist Progress Note ---
Date of Service September 06, 2023 Assessment & Plan (1) Atrial fibrillation with RVR: Plan: Patient was found to have atrial fibrillation on routine health checkup. EKG on admission personally reviewed; atrial fibrillation with ventricular rate of 136. Chest x-ray on admission personally reviewed; no acute findings CTA chest on admission reviewed; findings suggestive of mild bronchitis. Not symptomatic. High sensitive troponin negative. Echocardiogram shows EF of 55 to 60%, nondilated cardiac chambers. Mild MR. Status post electric cardioversion on September 06, 2023 On metoprolol 25 mg twice a day Also started on Eliquis. Discussed with lining caser to see if [facility] can obtain Eliquis. Confirmed that Eliquis can be obtained. Continue to monitor Prediabetes; HbA1c of 6.1% Recommended diabetic diet. DVT ppx: teds, scds Lines: 1 PIV FEN/GI: HH diet CODE: FULL Dispo: From [facility]; hospitalized with atrial fibrillation. He underwent electric cardioversion today. Continue to monitor on telemetry overnight. Possible DC in a.m. Please note the above document was generated using voice recognition software. It may contain grammatical, syntax or spelling errors. Any formal questions or concerns about the content, text or information contained within the body of this dictation should be directly addressed to the provider for clarification Admission and Anticipated Discharge Date Admission Date: September 02, 2023 Subjective Patient underwent ETHEL along with cardioversion. He converted to sinus rhythm. Denies any chest pain, palpitation or dizziness. Review of Systems Review of Systems: All systems reviewed & are unremarkable except as noted in Subjective Physical Exam Physical Exam: Constitutional: WD/WN, vitals as above, NAD, sitting up in bed, pleasant, conversing easily Respiratory: normal respiratory effort, lungs clear to auscultation, no wheeze, rales, rhonchi. Normal insp/exp effort, no accessory muscle use Cardiovascular: Regular no murmur, no edema Vessels: no JVD or carotid bruit Chest: normal inspection of chest Abdomen: normal bowel sounds, soft, nontender, no hepatosplenomegaly Musculoskeletal: no cyanosis or clubbing, extremities motor strength 5/5 Skin: no rashes, warm and dry normal turgor Neurologic: PERRL, EOMI, accommodation nl, no face palsy, no dysarthria CN's II- XI intact bilaterally and moves all extremities Psychiatric: A+Ox3, euthymic affect Results & Data Results & Data Vital Signs (Past 12 Hours) Vital Signs Temp Pulse Pulse Resp BP Pulse Ox O2 Del Method 09/06/23 11:10 36.5 C 61 16 96/60 L 97 Room Air 09/06/23 09:20 53 L 09/06/23 09:08 36.6 C 57 L 16 110/78 97 Room Air 09/06/23 08:53 36.7 C 55 L 16 103/68 97 Room Air 09/06/23 08:00 57 L 16 97/69 L 96 Room Air 09/06/23 07:45 54 L 16 84/59 L 96 Room Air 09/06/23 07:07 101 H 16 99/82 L 93 Room Air 09/06/23 06:54 113 H 09/06/23 02:45 36.7 C 90 18 107/71 96 Room Air
[2023-09-06] MEDS: APIXABAN 5 MG TABLET PO SCH (17:33)
[2023-09-06] MEDS ORDERED: APIXABAN 5 MG TABLET PO SCH (18:00)
[2023-09-07] MEDS: APIXABAN 5 MG TABLET PO SCH (06:21)
[2023-09-07 08:19] LABS: Hematocrit (blood only) 42.1 % (42.0-52.0); Hemoglobin 14.3 g/dl (14.0-18.0); Mean Corpuscular Hemoglobin 29.9 pg (25.0-34.0); Mean Corpuscular Volume 88.1 fL (80.0-100.0); Mean Platelet Volume 10.9 fL (9.4-12.4); Platelet Count 196 K/uL (130-400); RDW Coefficient of Variation 12.7 % (11.5-14.5); RDW Standard Deviation 41.3 fL (36.4-46.3); Red Blood Count 4.78 M/uL (4.70-6.10); White Blood Count 6.08 K/ul (4.8-10.8)
[2023-09-07 08:38] LABS: INR 1.1 (0.9-1.1); Prothrombin Time 12.4 Seconds (9.0-12.0)
[2023-09-07] MEDS: METOPROLOL TARTRATE 25 MG TAB PO SCH (08:43)
[2023-09-07] MEDS: ASPIRIN 81 MG ECTAB PO SCH (08:43)
[2023-09-07 08:57] LABS: Albumin Level 4.3 gm/dl (3.4-5.0); Bilirubin,Total 0.7 mg/dl (0.2-1.0); Calcium 9.1 mg/dl (8.6-10.3)
[2023-09-07 09:03] LABS: Albumin Globulin Ratio 1.8 (0.9-2); Creatinine Clr Calc Pharmacy 96.9 ml/min; Est GFR (African American) 107.7 ml/min; Est GFR (Non-African American) 92.9 ml/min; Globulin 2.4 gm/dl (2.5-4.0); Total Protein 6.7 gm/dl (6.0-8.3)
--- NOTE | 2023-09-07 09:30 | Cardiology Progress Note ---
Date of Service September 07, 2023 Assessment & Plan (1) Atrial fibrillation with RVR: (2) Mitral regurgitation: (3) HLD (hyperlipidemia): Plan (1) Atrial fibrillation with RVR: Patient remains in atrial fibrillation despite treatment with metoprolol t artrate 50 mg twice daily. His [id number] score is relatively low, 1 (newly diagnosed DM, Hgb a1c o f 6.1%). Patient underwent ETHEL guided direct-current cardioversion on 09/06/23. Metoprolol tartrate reduced to 25 mg twice daily. Anticoagulation plan changed to Eliquis as the [facility] is able to provide this treatment. (2) Mitral regurgitation: Trace to mild mitral regurgitation noted on transesophageal echocardiogram. (3) HLD (hyperlipidemia): LDL 75 mg/dl. Continue dietary treatment. Patient stable from cardiology perspective for discharge. Admission and Anticipated Discharge Date Admission Date: September 02, 2023 Subjective Patient seen in follow up of persistent AF for which pt underwent ETHEL guided cardioversion on 09/06/23. He feels well . No complaints. Sinus bradycardia in the 50s noted for the most part since cardioversion. Physical Exam Constitutional: WD/WN, vitals as above Respiratory: normal respiratory effort, lungs clear to auscultation Cardiovascular: Rate/Rhythm: + tachycardic and + irregularly irregular Heart Sounds: no murmur Extremities: no edema Gastrointestinal (Abdomen): normal bowel sounds, soft, nontender, no hepatosplenomegaly Neurologic: PERRL, EOMI, accommodation nl, no face palsy, no dysarthria Results & Data Vital Signs (Past 12 Hours) Vital Signs Temp Pulse Pulse Resp BP Pulse Ox O2 Del Method 09/07/23 07:55 36.6 C 51 L 18 112/73 97 Room Air 09/07/23 06:41 47 L 09/07/23 02:46 36.7 C 52 L 18 114/75 96 Room Air 09/06/23 22:54 36.8 C 57 L 18 117/79 96 Room Air 09/06/23 22:45 52 L Laboratory Results Cardiac Enzymes 09/07/23 Range/Units 07:43 AST 14 (13-39) U/L Coagulation 09/07/23 Range/Units 07:43 PT 12.4 H (9.0-12.0) Seconds CBC 09/07/23 Range/Units 07:43 WBC 6.08 (4.8-10.8) K/ul RBC 4.78 (4.70-6.10) M/uL Hgb 14.3 (14.0-18.0) g/dl Hct 42.1 (42.0-52.0) % Plt Count 196 (130-400) K/uL Comprehensive Metabolic Panel 09/07/23 Range/Units 07:43 Sodium 140 (136-145) mmol/L Potassium 4.0 (3.5-5.1) mmol/L Chloride 107 (98-107) mmol/L Carbon Dioxide 28 (21-32) mmol/L BUN 24 H (6-23) mg/dl Creatinine 0.89 (0.6-1.4) mg/dl Glucose 113 H (70-99(Fasting)) mg/dl Calcium 9.1 (8.6-10.3) mg/dl AST 14 (13-39) U/L ALT 27 (7-52) U/L Alkaline Phosphatase 59 (34-104) U/L Total Protein 6.7 (6.0-8.3) gm/dl Albumin 4.3 (3.4-5.0) gm/dl Intake and Output 09/06/23 09/07/23 09/07/23 22:59 06:59 14:59 Intake Total 200 / 880 200 / 880 Balance 200 / 880 200 / 880 Intake: Oral 200 / 880 200 / 880 (2) Mitral regurgitation Cardiac valve disease etiology: nonrheumatic Qualified Code(s): I34.0 - Nonrheumatic mitral (valve) insufficiency (3) HLD (hyperlipidemia) Hyperlipidemia type: pure hypercholesterolemia Qualified Code(s): E78.00 - Pure hypercholesterolemia, unspecified
[2023-09-07 11:52] VITALS: BP 97/61; RESP 19; TEMP 98.4; O2SAT 98
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
[2023-09-07 14:47] VITALS: PULSE 49
== END 2023-09-07 15:34 | DRG 310 ==
LOC: ED 12:12 → EDINP 16:23 → SUATTDRO 16:23 → 2S 09-03 01:22